=== PATIENT | female | born 1975 | race Caucasian/White ===

== ENCOUNTER 2017-04-05 16:02 | Emergency (ER) | payer BC ==
[~2017-04-05] VITALS: Ht 162.5 cm; Wt 86.2 kg
[~2017-04-05 16:02] MED LIST: ALLEGRA30 MG PO; AMITRIPTYLINE25 MG PO; ANTIVERT/2525 M1 PO; ATIVAN0.5 MG PO; AVELOX400 MG PO; AZITHROMYCIN500 M2 PO; CLARITIN10 MG PO; DARVOCET N 1001 TAB PO; DAYPRO600 M1 PO; EFFEXOR XR75 MG PO; FLONASE ALLERG9.9 ML NS; GLUCOPHAGE500 MG PO; LEVAQUIN750 M1 PO; LIDEX0.05% T; MACROBID100 M1 PO; MEDROL DOSEPAK4 MG PO; MOTRIN800 MG PO; Motrin,Rufen800 MG PO; NEURONTIN300 MG PO; PREDNISONE20 M1 PO; PRILOSEC10 MG PO; VIBRAMYCIN100 MG PO; ZITHROMAX Z PA250 MG PO; ZOFRAN ODT4 MG SL
== END 2017-04-05 17:20 | disposition home or self-care (01) ==
LOC: ED 16:02
DX: S61.213A Laceration without foreign body of left middle finger without damage to nail, initial encounter (principal); F17.200 Nicotine dependence, unspecified, uncomplicated; Z88.0 Allergy status to penicillin; Z88.2 Allergy status to sulfonamides; Z88.6 Allergy status to analgesic agent; Z90.49 Acquired absence of other specified parts of digestive tract; W26.0XXA Contact with knife, initial encounter; Y93.G3 Activity, cooking and baking; Y92.9 Unspecified place or not applicable; Y99.9 Unspecified external cause status

== ENCOUNTER 2017-12-09 11:00 | Emergency (ER) | payer BC ==
[~2017-12-09] VITALS: Ht 162.5 cm; Wt 88.5 kg
[2017-12-09] MEDS ORDERED: TESSALON PERLE100 M1 PO (11:59)
[2017-12-09] MEDS ORDERED: DELTASONE20 M1 PO (11:59)
[2017-12-09] MEDS ORDERED: ZITHROMAX250 MG PO (11:59)
== END 2017-12-09 12:09 | disposition home or self-care (01) ==
LOC: ED 11:00
DX: J40 Bronchitis, not specified as acute or chronic (principal); J01.90 Acute sinusitis, unspecified; Z88.0 Allergy status to penicillin; F17.200 Nicotine dependence, unspecified, uncomplicated; Z88.2 Allergy status to sulfonamides; Z88.6 Allergy status to analgesic agent; Z79.899 Other long term (current) drug therapy

== ENCOUNTER 2017-12-22 22:33 | Emergency (ER) | payer BC ==
[~2017-12-22] VITALS: Ht 167.6 cm; Wt 81.6 kg
[~2017-12-22 22:33] MED LIST changes: +DELTASONE20 M1 PO; +TESSALON PERLE100 M1 PO; +ZITHROMAX250 MG PO
[2017-12-23] MEDS ORDERED: PROAIR HFA8.5 GM INH (00:22)
[2017-12-23] MEDS ORDERED: GUAIFEN-CODEINE10 ML PO (00:22)
[2017-12-23] MEDS ORDERED: ANAPROX DS550 MG PO (00:22)
[2017-12-23] MEDS ORDERED: TRAMADOL HCL50 MG PO (00:23)
== END 2017-12-23 01:14 | disposition home or self-care (01) ==
LOC: ED 22:33
DX: R07.81 Pleurodynia (principal); Z98.51 Tubal ligation status; Z98.890 Other specified postprocedural states; Z79.899 Other long term (current) drug therapy; Z88.0 Allergy status to penicillin; Z88.2 Allergy status to sulfonamides; Z88.5 Allergy status to narcotic agent

== ENCOUNTER → 2021-03-12 | Outpatient (CLI) | payer BC ==
[~2021-03-12] MED LIST changes: +ANAPROX DS550 MG PO; +GUAIFEN-CODEINE10 ML PO; +PROAIR HFA8.5 GM INH; +TRAMADOL HCL50 MG PO
== END | disposition home or self-care (01) ==
LOC: US 14:53
PROVIDERS: ATTEND Family Medicine
DX: E04.1 Nontoxic single thyroid nodule (principal)

== ENCOUNTER → 2023-01-16 | Outpatient (CLI) | payer BC ==
[2023-01-16 11:30] LABS: BASO # 0.1 10*3/uL (0.0-0.1); BASO % 0.7 % (0.0-1.0); EOS # 0.1 10*3/uL (0.0-0.4); EOS % 1.5 % (1.0-4.0); HEMATOCRIT 44.6 % (37.0-47.0); LYMPH # 1.7 10*3/uL (1.3-4.4); LYMPH % 19.1 % (27.0-41.0); MEAN CELL VOLUME 88.3 fl (81.0-99.0); MEAN CORPUSCULAR HGB 27.3 pg (27.0-31.0); MEAN CORPUSCULAR HGB CONC 30.9 g/dl (33.0-37.0); MEAN PLATELET VOLUME 9.7 fl (9.6-12.3); MONO # 0.5 10*3/uL (0.1-1.0); MONO % 5.1 % (3.0-9.0); NEUT # 6.4 10*3/uL (2.3-7.9); NEUT % 73.1 % (47.0-73.0); PLATELET COUNT AUTOMATED 366 10*3/uL (130-400); RED BLOOD COUNT 5.05 10*6/uL (4.10-5.10); RED CELL DISTRI WIDTH 13.2 % (0-14.5); WHITE BLOOD COUNT 8.8 10*3/uL (4.8-10.8)
[2023-01-16 12:03] LABS: ALKALINE PHOSPHATASE 118 U/L (46-116); BUN 11 mg/dl (9-23); CHLORIDE 104 mmol/L (98-107); POTASSIUM 4.3 mmol/L (3.4-5.1); SGPT/ALT 18 U/L (10-49); TOTAL PROTEIN 7.6 gm/dL (6.0-8.0)
== END | disposition home or self-care (01) ==
LOC: LAB 10:15
PROVIDERS: ATTEND Student in an Organized Health Care Education/Training Program
DX: E11.9 Type 2 diabetes mellitus without complications (principal); R53.83 Other fatigue

== ENCOUNTER 2023-04-03 04:26 | Emergency (ER) | payer BC ==
[~2023-04-03] VITALS: Ht 162.5 cm; Wt 83.9 kg
== END 2023-04-03 06:51 | disposition home or self-care (01) ==
LOC: ED 04:26
DX: T16.1XXA Foreign body in right ear, initial encounter (principal); Z88.0 Allergy status to penicillin; Z88.2 Allergy status to sulfonamides; Z88.6 Allergy status to analgesic agent; Z79.899 Other long term (current) drug therapy; Z79.2 Long term (current) use of antibiotics; F41.9 Anxiety disorder, unspecified; Z98.890 Other specified postprocedural states; Z98.51 Tubal ligation status; X58.XXXA Exposure to other specified factors, initial encounter; Y93.89 Activity, other specified; Y92.89 Other specified places as the place of occurrence of the external cause; Y99.8 Other external cause status